=== PATIENT | male | born 1960 | race Caucasian/White ===

== ENCOUNTER → 2019-10-17 | Day surgery (SDC) | payer OTHER ==
[~2019-10-17] MED LIST: ATOR20TA58 PO; GABA-689 PO; GABA800T5 PO; HYDROmorphone 2 MG/ML VIAL IV PRN; IV RINGERS,LACTATED 1000ML 1,000 ML IV SCH; LIDOCAINE 1% PF 2 ML VIAL. ID PRN; LIDOCAINE 2% PF 5 ML VIAL. ONE; LISI10TA2 PO; MORPHINE SULFATE 2 MG/ML VIAL. IV PRN; MULT1CAP33 PO; OMEP-229 PO; ONDANSETRON PF 4 MG/2 ML VIAL. IV PRN; PROCHLORPERAZINE 10 MG/2 ML VIAL. IV PRN; PROPOFOL 40 ML IV ONE; SITA50TA PO; fentaNYL PF VIAL 100 MCG/2 ML VIAL IV PRN
[2019-10-17 10:13] VITALS: BP 139/78
== END ==
LOC: ENDOS 07:09
PROVIDERS: ATTEND Internal Medicine Gastroenterology
DX: Z12.11 Encounter for screening for malignant neoplasm of colon (principal); K64.0 First degree hemorrhoids; K63.89 Other specified diseases of intestine; K21.9 Gastro-esophageal reflux disease without esophagitis; E11.9 Type 2 diabetes mellitus without complications; F15.90 Other stimulant use, unspecified, uncomplicated; E78.00 Pure hypercholesterolemia, unspecified; I10 Essential (primary) hypertension; E66.9 Obesity, unspecified; Z68.30 Body mass index [BMI] 30.0-30.9, adult; Z87.891 Personal history of nicotine dependence; Z90.49 Acquired absence of other specified parts of digestive tract; Z98.84 Bariatric surgery status; Z80.0 Family history of malignant neoplasm of digestive organs; Z79.84 Long term (current) use of oral hypoglycemic drugs
CPT/HCPCS: 45378; J2001; J2704

== ENCOUNTER → 2020-01-02 | Outpatient (CLI) | payer OTHER ==
[2019-10-17 10:13] VITALS: BP 139/78
[~2020-01-02] MED LIST changes: -HYDROmorphone 2 MG/ML VIAL IV PRN; -IV RINGERS,LACTATED 1000ML 1,000 ML IV SCH; -LIDOCAINE 1% PF 2 ML VIAL. ID PRN; -LIDOCAINE 2% PF 5 ML VIAL. ONE; -MORPHINE SULFATE 2 MG/ML VIAL. IV PRN; -OMEP-229 PO; +OMEP20CA16 PO; -ONDANSETRON PF 4 MG/2 ML VIAL. IV PRN; -PROCHLORPERAZINE 10 MG/2 ML VIAL. IV PRN; -PROPOFOL 40 ML IV ONE; -fentaNYL PF VIAL 100 MCG/2 ML VIAL IV PRN
--- NOTE | 2020-01-02 16:14 | KCIC ---
LUMBAR SPINE WO CONTRAST Date: 01/02/2020 3:30 PM Indication: Low back pain, stenosis Comparison: None. Technique: Multi-planar multi-weighted magnetic resonance imaging of the lumbar spine was performed without intravenous contrast using the standard lumbar spine protocol. FINDINGS: The lumbar spine is normally aligned. No acute fracture. Moderate multilevel degenerative disc desiccation and disc height loss. No marrow replacing process to suggest malignancy. The conus terminates at a normal level. No abnormal signal is seen within the visualized distal spinal cord. No clumping of intrathecal nerve roots. No soft tissue abnormality in the visualized abdomen or pelvis. T12-L1: No disc bulge. No facet arthropathy. No significant spinal stenosis or neural foraminal narrowing. L1-L2: Disc bulge. Mild facet arthropathy. Mild spinal stenosis. Mild bilateral neural foraminal narrowing. L2-L3: Disc bulge. Mild to moderate facet arthropathy. Ligamentum flavum thickening. Mild spinal stenosis and lateral recess narrowing. Mild to moderate right and mild left neural foraminal narrowing. L3-L4: Disc bulge. Moderate to severe facet arthropathy. Ligamentum flavum thickening. Moderate to severe spinal stenosis. Moderate lateral recess narrowing. Mild bilateral neural foraminal narrowing. Synovial cyst in the dorsal epidural space just below the disc space measuring 1.3 x 0.3 cm (CC by AP). L4-L5: Disc bulge. Severe facet arthropathy. Mild to moderate spinal stenosis. Severe right and mild left lateral recess narrowing. Mild bilateral neural foraminal narrowing. L5-S1: No disc bulge. Mild right and moderate left facet arthropathy. No significant spinal stenosis or neural foraminal narrowing. IMPRESSION: Moderate to severe spinal canal stenosis at L3-4. Degenerative changes at the remaining levels as detailed above. Electronically signed by: Marcial Vega MD (01/02/2020 4:11 PM) [id number]
== END | disposition home or self-care (01) ==
LOC: KCIC MRI 15:27
PROVIDERS: ATTEND Family Medicine
DX: M47.816 Spondylosis without myelopathy or radiculopathy, lumbar region (principal); M48.061 Spinal stenosis, lumbar region without neurogenic claudication; M71.38 Other bursal cyst, other site; M51.36 Other intervertebral disc degeneration, lumbar region
CPT/HCPCS: 72148